=== PATIENT | male | born 1960 | race Caucasian/White ===

== ENCOUNTER 2016-07-22 09:09 | Emergency (ER) | payer SELFPAY ==
[~2016-07-22] VITALS: Ht 175.3 cm; Wt 75.0 kg
[2016-07-22 09:12] VITALS: BP 180/84; PULSE 99; RESP 16; TEMP 98.1; O2SAT 97
[2016-07-22 09:24] VITALS: BP 170/79; PULSE 77; RESP 16; O2SAT 96
--- NOTE | 2016-07-22 09:43 | PD ---
HPI Chief Complaint: Respiratory Symptoms Time Seen by Provider: 09:26 Travel History International Travel<30 days: No Contact w/Intl Traveler<30days: No Traveled to known affect area: No History of Present Illness HPI The patient is a 56-year-old male who presents to the emergency department shortness of breath. The patient notes a 2 day history of shortness of breath with productive cough producing a yellow sputum. The patient also complains of audible wheezing. The patient does have a history of similar symptoms several years ago secondary to pneumonia. The patient does smoke approximately one pack of cigarettes per day, last cigarette was one hour ago. The patient does note subjective fever at home with intermittent chills and sweats. The patient denies any chest pain, nausea, vomiting, diarrhea, abdominal pain, or myalgias. The patient recently moved to the local area from [place], [place], does not have a local primary physician. He denies any chronic medical problems. PFSH Past Medical History Narrative Medical Pneumonia previously Medical History: Denies Significant Hx Tetanus Vaccination: < 5 Years Influenza Vaccination: Yes Past Surgical History Narrative Surgical Paia tooth removal Surgical History: No Previous Surgery Social History Alcohol Use: No Tobacco Use: Yes (1 PPD) Substance Use: No Allergies-Medications (Allergen,Severity, Reaction): Coded Allergies: No Known Allergies (Unverified , 07/22/16) Reported Meds & Prescriptions Reported Meds & Active Scripts Active No Active Prescriptions or Reported Medications Review of Systems Except as stated in HPI: all other systems reviewed are Neg General / Constitutional: Positive: Fever HENT: No: Headaches Cardiovascular: No: Chest Pain or Discomfort Respiratory: Positive: Cough, Shortness of Breath, Wheezing Gastrointestinal: No: Nausea, Vomiting, Abdominal Pain Genitourinary: No: Dysuria Musculoskeletal: No: Myalgias, Arthralgias Physical Exam Narrative GENERAL: Awake, alert, 56-year-old male who appears his stated age and is in no acute respiratory distress. SKIN: Warm and dry. HEAD: Atraumatic. Normocephalic. EYES: Pupils equal and round. No scleral icterus. No injection or drainage. ENT: No nasal bleeding or discharge. Mucous membranes pink and moist. NECK: Trachea midline. No JVD. CARDIOVASCULAR: Regular rate and rhythm. No murmur appreciated. Heart rate in the 80s. RESPIRATORY: No accessory muscle use. Rhonchi and wheezing bilaterally.. GASTROINTESTINAL: Abdomen soft, non-tender, nondistended. No rebound tenderness. MUSCULOSKELETAL: No obvious deformities. No clubbing. No cyanosis. No edema. NEUROLOGICAL: Awake and alert. No obvious cranial nerve deficits. Motor grossly within normal limits. Normal speech. PSYCHIATRIC: Appropriate mood and affect; insight and judgment normal. Data Data Last Documented VS Vital Signs Date Time Temp Pulse Resp B/P Pulse Ox O2 Delivery O2 Flow Rate FiO2 07/22/16 10:26 97 Nasal Cannula 2.00 07/22/16 09:24 77 16 170/79 07/22/16 09:12 98.1 Orders Electrocardiogram (07/22/16 09:23) Complete Blood Count With Diff (07/22/16 09:36) Comprehensive Metabolic Panel (07/22/16 09:36) B-Type Natriuretic Peptide (07/22/16 09:36) Magnesium (Mg) (07/22/16 09:36) Ckmb (Isoenzyme) Profile (07/22/16 09:36) Troponin I (07/22/16 09:36) Influenzae A/B Antigen (07/22/16 09:36) Iv Access Insert/Monitor (07/22/16 09:36) Ecg Monitoring (07/22/16 09:36) Oximetry (07/22/16 09:36) Oxygen Administration (07/22/16 09:36) Chest, Single Ap (07/22/16 09:36) Sodium Chloride 0.9% Flush (Ns Flush) (07/22/16 09:45) Methylprednisolone So Succ Inj (Solumedr (07/22/16 09:45) Albuterol-Ipratropium Neb (Duoneb Neb) (07/22/16 09:45) Lactic Acid (07/22/16 09:36) Lidocaine Pf 4% Neb (Lidocaine Pf 4% Neb (07/22/16 09:45) CKMB (07/22/16 09:40) CKMB% (07/22/16 09:40) Labs Laboratory Tests Test 07/22/16 09:40 White Blood Count 8.1 TH/MM3 Red Blood Count 4.24 MIL/MM3 Hemoglobin 14.1 GM/DL Hematocrit 39.5 % Mean Corpuscular Volume 93.2 FL Mean Corpuscular Hemoglobin 33.3 PG Mean Corpuscular Hemoglobin 35.7 % Concent Red Cell Distribution Width 13.2 % Platelet Count 251 TH/MM3 Mean Platelet Volume 7.9 FL Neutrophils (%) (Auto) 74.7 % Lymphocytes (%) (Auto) 12.6 % Monocytes (%) (Auto) 10.8 % Eosinophils (%) (Auto) 1.2 % Basophils (%) (Auto) 0.7 % Neutrophils # (Auto) 6.0 TH/MM3 Lymphocytes # (Auto) 1.0 TH/MM3 Monocytes # (Auto) 0.9 TH/MM3 Eosinophils # (Auto) 0.1 TH/MM3 Basophils # (Auto) 0.1 TH/MM3 CBC Comment DIFF FINAL Differential Comment Sodium Level 140 MEQ/L Potassium Level 4.1 MEQ/L Chloride Level 103 MEQ/L Carbon Dioxide Level 28.0 MEQ/L Anion Gap 9 MEQ/L Blood Urea Nitrogen 6 MG/DL Creatinine 0.88 MG/DL Estimat Glomerular Filtration 90 ML/MIN Rate Random Glucose 98 MG/DL Lactic Acid Level 1.1 mmol/L Calcium Level 8.9 MG/DL Magnesium Level 2.1 MG/DL Total Bilirubin 0.4 MG/DL Aspartate Amino Transf 16 U/L (AST/SGOT) Alanine Aminotransferase 25 U/L (ALT/SGPT) Alkaline Phosphatase 60 U/L Total Creatine Kinase 178 U/L Creatine Kinase MB 1.8 NG/ML Troponin I LESS THAN 0.02 NG/ML B-Type Natriuretic Peptide 32 PG/ML Total Protein 7.3 GM/DL Albumin 3.9 GM/DL MDM Medical Decision Making Medical Screen Exam Complete: Yes Emergency Medical Condition: Yes Medical Record Reviewed: Yes Interpretation(s) EKG reveals normal sinus rhythm with a rate 80. Q wave noted in lead V1 and V2. Date/Time Procedure Status Source Growth 07/22/16 09:35 Influenza Types A,B Antigen (SILVINO) - Final Complete Nasal Aspirate NEGATIVE FOR FLU A AND B ANTIGEN.... Last Impressions Chest X-Ray 07/22/16 0936 Signed Impressions: Service Date/Time: Friday, July 22, 2016 09:49 - CONCLUSION: Normal examination for a patient of this age. Francisco Mike MD Laboratory Tests Test 07/22/16 09:40 White Blood Count 8.1 TH/MM3 Red Blood Count 4.24 MIL/MM3 Hemoglobin 14.1 GM/DL Hematocrit 39.5 % Mean Corpuscular Volume 93.2 FL Mean Corpuscular Hemoglobin 33.3 PG Mean Corpuscular Hemoglobin 35.7 % Concent Red Cell Distribution Width 13.2 % Platelet Count 251 TH/MM3 Mean Platelet Volume 7.9 FL Neutrophils (%) (Auto) 74.7 % Lymphocytes (%) (Auto) 12.6 % Monocytes (%) (Auto) 10.8 % Eosinophils (%) (Auto) 1.2 % Basophils (%) (Auto) 0.7 % Neutrophils # (Auto) 6.0 TH/MM3 Lymphocytes # (Auto) 1.0 TH/MM3 Monocytes # (Auto) 0.9 TH/MM3 Eosinophils # (Auto) 0.1 TH/MM3 Basophils # (Auto) 0.1 TH/MM3 CBC Comment DIFF FINAL Differential Comment Sodium Level 140 MEQ/L Potassium Level 4.1 MEQ/L Chloride Level 103 MEQ/L Carbon Dioxide Level 28.0 MEQ/L Anion Gap 9 MEQ/L Blood Urea Nitrogen 6 MG/DL Creatinine 0.88 MG/DL Estimat Glomerular Filtration 90 ML/MIN Rate Random Glucose 98 MG/DL Lactic Acid Level 1.1 mmol/L Calcium Level 8.9 MG/DL Magnesium Level 2.1 MG/DL Total Bilirubin 0.4 MG/DL Aspartate Amino Transf 16 U/L (AST/SGOT) Alanine Aminotransferase 25 U/L (ALT/SGPT) Alkaline Phosphatase 60 U/L Total Creatine Kinase 178 U/L Creatine Kinase MB 1.8 NG/ML Troponin I LESS THAN 0.02 NG/ML B-Type Natriuretic Peptide 32 PG/ML Total Protein 7.3 GM/DL Albumin 3.9 GM/DL Differential Diagnosis Differential diagnosis includes pneumonia, bronchitis, pleural effusion, congestive heart failure, pulmonary embolism, acute coronary syndrome. Narrative Course IV was established, labs were drawn and sent, and the patient was placed on cardiac telemetry monitoring and continuous pulse oximetry monitoring. EKG was ordered and interpreted. Chest x-ray was obtained. The patient was administered Solu-Medrol 125 mg intravenously and duo nebs 3 with respiratory lidocaine. Chest x-ray is negative. Influenza screen is negative. Laboratory evaluation is unremarkable. The patient's BNP is normal. Lactic acid is reassuring. The patient was reevaluated at 10:45 AM. The patient's symptoms have improved. The patient be discharged home on steroids, inhaler, nebulizer, and Zithromax. The patient is advised to stop smoking and follow-up with a primary physician. Diagnosis Primary Impression: Bronchitis Patient Instructions: General Instructions Additional Instructions: Medications as directed. Stop smoking. Nebulizer as directed. Follow-up with a primary physician. Return if symptoms worsen or progress. Med/Other Pt SpecificInfo: Prescription(s) given Scripts Nebulizer 1 Mis Mis #1 EA .ROUTE DIRECTED Ref 0 Prov:Jose Schuler MD 07/22/16 Azithromycin (Zithromax Z-Elias)250 Mg [id number] Mg PO DIRECTED #1 DSPK Ref 0 500 MG (2 tabs) day 1, then 1 tab days 2-5. Prov:Jose Schuler MD 07/22/16 Prednisone (Deltasone)20 Mg Tab40 Mg PO DAILY 5 Days Ref 0 Prov:Jose Schuler MD 07/22/16 Albuterol 18 GM Inh (Ventolin Hfa 18 GM Inh)90 Mcg/Act Aer2 Puff INH Q4H PRN ( SHORTNESS OF BREATH) #1 INHALER Ref 0 Prov:Jose Schuler MD 07/22/16 Albuterol Neb 2.5 Mg/3 Ml Neb2.5 Mg NEB Q4HR NEB PRN (SHORTNESS OF BREATH) #60 NEBULE Ref 0 Prov:Jose Schuler MD 07/22/16 Disposition: 01 DISCHARGE HOME Condition: Stable Jose Schuler MD Jul 22, 2016 09:42
[2016-07-22] MEDS ORDERED: methylPREDNISolone SOD SUCC 125 MG/2 ML VIAL IVP ONE (09:45)
[2016-07-22] MEDS ORDERED: SODIUM CHLORIDE 0.9% FLUSH 5 ML FLUSH IVF PRN (09:45)
[2016-07-22] MEDS ORDERED: RESP: LIDOCAINE HCL 4% PF 5 ML NEB NEB ONE (09:45)
[2016-07-22 10:00] LABS: BASOPHIL # 0.1 TH/MM3 (0-0.2); BASOPHIL % 0.7 % (0.0-2.0); EOSINOPHIL # 0.1 TH/MM3 (0-0.4); EOSINOPHIL % 1.2 % (0.0-4.0); HEMATOCRIT 39.5 % (39.0-51.0); HEMO FLAGS DIFF FINAL; LYMPH % 12.6 % (9.0-44.0); MEAN CELL VOLUME 93.2 FL (80.0-100.0); MEAN CORPUSCULAR HEMOGLOBIN 33.3 PG (27.0-34.0); MEAN CORPUSCULAR HGB CONC 35.7 % (32.0-36.0); MONO % 10.8 % (0.0-8.0); NEUT % 74.7 % (16.0-70.0); PLATELET COUNT 251 TH/MM3 (150-450); RED BLOOD COUNT 4.24 MIL/MM3 (4.50-5.90); RED CELL DISTRIBUTION WIDTH 13.2 % (11.6-17.2); WHITE BLOOD COUNT 8.1 TH/MM3 (4.0-11.0)
--- NOTE | 2016-07-22 10:08 | RADRPT ---
EXAM DATE/TIME: 07/22/2016 09:49 [facility] COMPARISON: No previous studies available for comparison. INDICATIONS : Short of Breath MEDICAL HISTORY : None. SURGICAL HISTORY : None. ENCOUNTER: Initial ACUITY: 1 day PAIN SCORE: 6/10 LOCATION: Bilateral chest FINDINGS: A single view of the chest demonstrates the lungs to be symmetrically aerated without evidence of mas s, infiltrate or effusion. The cardiomediastinal contours are unremarkable. Osseous structures are intact. CONCLUSION: Normal examination for a patient of this age. Francisco Mike MD on July 22, 2016 at 10:06 Board Certified Radiologist. This report was verified electronically.
[2016-07-22 10:13] LABS: ALT (GPT) 25 U/L (12-78); ANION GAP 9 MEQ/L (5-15); AST (GOT) 16 U/L (15-37); BLOOD UREA NITROGEN 6 MG/DL (7-18); CHLORIDE 103 MEQ/L (98-107); GLOMERULAR FILTRATION RATE 90 ML/MIN (>89); MAGNESIUM 2.1 MG/DL (1.5-2.5); POTASSIUM 4.1 MEQ/L (3.5-5.1); SODIUM (NA) 140 MEQ/L (136-145)
[2016-07-22 10:17] LABS: ALKALINE PHOSPHATASE 60 U/L (45-117); CREATINE KINASE 178 U/L (39-308); TOTAL BILIRUBIN ADULT 0.4 MG/DL (0.2-1.0)
[2016-07-22] MEDS: RESP: ALBUTEROL 2.5 MG/IPRATROPIUM 0.5 MG NEB (SCH) INH ×2 (10:22→10:51)
[2016-07-22 10:26] VITALS: O2SAT 97
[2016-07-22 10:30] LABS: CKMB 1.8 NG/ML (0.5-3.6)
[2016-07-22 10:45] VITALS: BP 153/75; PULSE 82; RESP 16; O2SAT 97
[2016-07-22] MEDS ORDERED: PRED-503 PO (10:52)
[2016-07-22] MEDS ORDERED: VENTAER INH (10:52)
[2016-07-22] MEDS ORDERED: ALBU0.08 NEB (10:52)
[2016-07-22] MEDS ORDERED: NEBULIZER1 MI1 (10:52)
[2016-07-22] MEDS ORDERED: ZITHTAB PO (10:52)
[2016-07-22 11:32] VITALS: BP 161/74
--- NOTE | 2016-07-22 13:53 | EKG ---
Date Performed: 07/22/2016 Time Performed: 09:31:13 PTAGE: 56 years EKG: Sinus rhythm WITH OCCASIONAL SUPRAVENTRICULAR PREMATURE COMPLEXES POSSIBLE RIGHT VENTRICULAR CONDUCTION DELAY SEP KAMARI MYOCARDIAL INFARCTION ABNORMAL ECG NO PREVIOUS TRACING DOCTOR: Filipe Hsieh Interpretating Date/Time 07/22/2016 13:52:24
== END 2016-07-22 11:43 | disposition home or self-care (01) ==
LOC: NEPE 09:09
DX: J40 Bronchitis, not specified as acute or chronic (principal); R06.02 Shortness of breath; I49.3 Ventricular premature depolarization; R94.31 Abnormal electrocardiogram [ECG] [EKG]; F17.210 Nicotine dependence, cigarettes, uncomplicated
CPT/HCPCS: 71010; 80053; 82550; 82552; 83605; 83735; 83880; 84484; 85025; 87804; 93005; 94640; 94664; 96374; 99285; J2930